=== PATIENT | male | born 1975 | race Caucasian/White ===

== ENCOUNTER 2017-01-20 09:29 | Emergency (ER) | payer BC ==
[~2017-01-20] VITALS: Ht 172.7 cm; Wt 81.0 kg
[2017-01-20] MEDS ORDERED: SOD CHLORIDE 0.9% 1,000 ML IV STA (09:35)
[2017-01-20] MEDS ORDERED: ONDANSETRON 4 MG INJ IV STA (09:35)
[2017-01-20] MEDS ORDERED: morphine 4 MG/ML VIAL IV STA (09:35)
[2017-01-20 09:42] VITALS: Ht 172.7 cm; Wt 81.0 kg
[2017-01-20 10:12] LABS: ADD SCAN DIFF NO
[2017-01-20 10:29] LABS: ALBUMIN 4.7 g/dl (3.3-4.9); ALBUMIN/GLOBULIN RATIO 1.56; BILIRUBIN,INDIRECT 0.7 mg/dl (0-1.1); BILIRUBIN,TOTAL 0.7 mg/dl (0.2-1.3); CALCIUM 9.4 mg/dl (8.4-10.2); CREATININE 0.74 mg/dl (0.61-1.24); POTASSIUM 4.2 mmol/L (3.5-5.1); TOTAL PROTEIN 7.7 g/dl (6.1-8.1)
--- NOTE | 2017-01-20 10:34 | RADRPT ---
PROCEDURE: Abdominal Ultrasound (right upper quadrant). CLINICAL INDICATION: Abdominal pain TECHNIQUE: Multiple real-time longitudinal and transverse images of the right upper quadrant of th e abdomen were acquired utilizing a curved array transducer. Images were reviewed on a high-resoluti on PACS workstation. COMPARISON: None FINDINGS: The liver is normal in size and echogenicity. No focal masses are identified. There is no evidenc e of intra or extrahepatic ductal dilatation. The common bile duct measures 3.6 mm in diameter. No gallstones or gallbladder wall thickening is seen. The visualized portions of the pancreas are unremarkable with obscuration of the tail of the pancrea s. No free fluid is identified. There is no evidence of right hydronephrosis or renal calcification. The right kidney measures 10.6 cm in length. The visualized portions of the aorta and inferior vena cava are within normal limits. IMPRESSION: 1. Unremarkable right upper quadrant ultrasound. RPTAT: KK .Zafar Hills MD, MD Date Time Electronically viewed and signed by .Zafar Hills MD, MD on 01/20/2017 10:33 .B/
[2017-01-20 10:44] LABS: ABNORMAL IP MESSAGE 1; BASOPHILS % 0.2 % (0.0-2.0); EOSINOPHILS # 0.1 10^3/ul (0.0-0.5); EOSINOPHILS % 0.7 % (0.0-7.0); HEMATOCRIT 43.7 % (42.0-52.0); HEMOGLOBIN 14.4 g/dl (14.0-18.0); LYMPHOCYTES # 0.3 10^3/ul (0.8-2.9); MEAN CORPUSCULAR HEMOGLOBIN 31.3 pg (29.0-33.0); MEAN PLATELET VOLUME 9.5 fl (7.4-10.4); MONOCYTE # 0.4 10^3/ul (0.3-0.9); MONOCYTES % 3.6 % (0.0-11.0); NEUTROPHIL # 10.2 10^3/ul (1.6-7.5); NEUTROPHILS % 92.3 % (39.0-77.0); PLATELET COUNT 256 10^3/UL (140-415); RED CELL DISTRIBUTION WIDTH 13.2 % (11.5-14.5)
[2017-01-20 11:31] LABS: ADD UMIC YES; URINE BILIRUBIN (Dip) NEGATIVE (NEGATIVE); URINE BLOOD (Dip) NEGATIVE (NEGATIVE); URINE COLOR YELLOW (YELLOW); URINE GLUCOSE (Dip) NEGATIVE (NEGATIVE); URINE KETONES (Dip) NEGATIVE (NEGATIVE); URINE LEUKOCYTE ESTERASE (Dip) NEGATIVE (NEGATIVE); URINE NITRITE (Dip) NEGATIVE (NEGATIVE); URINE TOTAL PROTEIN (Dip) TRACE (NEGATIVE); URINE UROBILINOGEN (Dip) 0.2 E.U./dL (0.1-1.0)
[2017-01-20] MEDS ORDERED: HYDR-902 PO (11:50)
[2017-01-20] MEDS ORDERED: ONDA4TAB14 PO (11:50)
[2017-01-20 11:57] VITALS: BP 129/76; PULSE 89; RESP 20; TEMP 98.5
--- NOTE | 2017-01-20 13:48 | ERD ---
ER Documentation Chief Complaint Date/Time DATE: 01/20/17 TIME: 13:47 Chief Complaint mid abdominal pain with nausea vomiting since yesterday HPI Patient is a 41-year-old male with no medical problems who presents with abdominal pain and vomiting. The symptoms started at 10 PM last night. He said that every hour the pain comes and then goes away. He has had no fevers. He has chills. He has had no treatment as of yet. Dr. 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 ROS All systems reviewed and are negative except as per history of present illness. Medications Home Meds Active Scripts Ondansetron (Ondansetron Odt) 4 Mg Tab.rapdis, 4 MG PO Q6H Y for NAUSEA AND/OR VOMITING, #30 TAB Prov:CATHERINE ARITA MD 01/20/17 Hydrocodone/Acetaminophen ([place] 10-325 Tablet) 1 Each Tablet, 1 TAB PO Q6H Y for PAIN, #7 TAB Prov:CATHERINE ARITA MD 01/20/17 Allergies Allergies: Coded Allergies: No Known Allergy (Unverified , 01/20/17) PMhx/Soc Medical and Surgical Hx: pt denies Medical Hx, pt denies Surgical Hx Hx Alcohol Use: Yes Hx Substance Use: No Hx Tobacco Use: No Smoking Status: Never smoker FmHx Family History: No diabetes Physical Exam Vitals Vital Signs Date Time Temp Pulse Resp B/P Pulse Ox O2 Delivery O2 Flow Rate FiO2 01/20/17 11:57 98.5 89 20 129/76 97 Room Air 01/20/17 10:03 99.5 108 20 133/87 96 Room Air 01/20/17 09:42 99.5 108 20 133/87 96 Physical Exam Const: Mild distress Head: Atraumatic Eyes: Normal Conjunctiva ENT: Normal External Ears, Nose and Mouth. Neck: Full range of motion..~ No meningismus. Resp: Clear to auscultation bilaterally Cardio: Regular rate and rhythm, no murmurs Abd: Soft, non tender, non distended. Normal bowel sounds Skin: No petechiae or rashes Back: No midline or flank tenderness Ext: No cyanosis, or edema Neur: Awake and alert Psych: Normal Mood and Affect Result Diagram: 01/20/17 0947 01/20/1747 Results 24 hrs Laboratory Tests Test 01/20/17 09:47 01/20/17 11:01 White Blood Count 11.010^3/ul Red Blood Count 4.6010^6/ul Hemoglobin 14.4g/dl Hematocrit 43.7% Mean Corpuscular Volume 95.0fl Mean Corpuscular Hemoglobin 31.3pg Mean Corpuscular Hemoglobin Concent 33.0g/dl Red Cell Distribution Width 13.2% Platelet Count 73521^3/UL Mean Platelet Volume 9.5fl Neutrophils % 92.3% Lymphocytes % 3.0% Monocytes % 3.6% Eosinophils % 0.7% Basophils % 0.2% Nucleated Red Blood Cells % 0.0/100WBC Neutrophils # 10.210^3/ul Lymphocytes # 0.310^3/ul Monocytes # 0.410^3/ul Eosinophils # 0.110^3/ul Basophils # 0.010^3/ul Nucleated Red Blood Cells # 0.010^3/ul Sodium Level 139mmol/L Potassium Level 4.2mmol/L Chloride Level 100mmol/L Carbon Dioxide Level 29mmol/L Anion Gap 14 Blood Urea Nitrogen 14mg/dl Creatinine 0.74mg/dl Glucose Level 127mg/dl Calcium Level 9.4mg/dl Total Bilirubin 0.7mg/dl Direct Bilirubin 0.00mg/dl Indirect Bilirubin 0.7mg/dl Aspartate Amino Transf (AST/SGOT) 27IU/L Alanine Aminotransferase (ALT/SGPT) 33IU/L Alkaline Phosphatase 87IU/L Total Protein 7.7g/dl Albumin 4.7g/dl Globulin 3.00g/dl Albumin/Globulin Ratio 1.56 Lipase 55U/L Urine Color YELLOW Urine Clarity CLEAR Urine pH 8.0 Urine Specific Avery 1.010 Urine Ketones NEGATIVE Urine Nitrite NEGATIVE Urine Bilirubin NEGATIVE Urine Urobilinogen 0.2 E.U./dL Urine Leukocyte Esterase NEGATIVE Urine Microscopic RBC 2-5/HPF Urine Microscopic WBC 0-2/HPF Urine Hemoglobin NEGATIVE Urine Glucose NEGATIVE% Urine Total Protein TRACE Current Medications Medications (Trade) Dose Ordered Sig/Francesco Route PRN Reason Start Time Stop Time Status Last Admin Dose Admin Sodium Chloride (NS) 1,000 ml @ 1,000 mls/hr Q1H STAT IV 01/20/17 09:35 4/25/17 10:34 DC 01/20/17 09:54 Morphine Sulfate (morphine) 4 mg ONCE STAT IV 01/20/17 09:35 01/20/17 09:36 DC 01/20/17 09:53 Ondansetron HCl (Zofran Inj) 4 mg ONCE STAT IV 01/20/17 09:35 01/20/17 09:36 DC 01/20/17 09:52 Procedures/MDM Ultrasound was negative per radiology. Patient is a 41-year-old male with no medical problems who presents with abdominal pain and vomiting. He had a full workup including laboratory studies and ultrasound of the right upper quadrant. Ultrasound was negative for gallstones or cholecystitis. Laboratory studies show mild leukocytosis but are otherwise normal. LFTs and lipase are normal. At this point I doubt cholecystitis, pancreatitis, appendicitis, or bowel obstruction. I believe the risks of doing a CT scan of the abdomen and pelvis outweigh the benefits. The patient will be discharged home but will need to follow-up with Dr. Angela Johnson within 24 hours for reevaluation. Departure Diagnosis: Primary Impression: Vomiting Vomiting type: unspecified Vomiting Intractability: non-intractable Nausea presence: with nausea Qualified Code: R11.2 - Non-intractable vomiting with nausea, unspecified vomiting type Additional Impression: Abdominal pain Abdominal location: epigastric Qualified Code: R10.13 - Epigastric pain Condition: Fair Patient Instructions: Abdominal Pain, Vomiting (6Y-Adult) Referrals: ANGELA JOHNSON Additional Instructions: FOLLOW UP WITH YOUR PRIMARY CARE PHYSICIAN TOMORROW.Return to this facility if you are not improving as expected. CATHERINE ARITA MD Jan 20, 2017 13:48
== END 2017-01-20 12:10 | disposition home or self-care (01) ==
LOC: E/R 09:29
DX: R11.2 Nausea with vomiting, unspecified (principal); R10.13 Epigastric pain
CPT/HCPCS: 76705; 80053; 81001; 83690; 85025; J2270; J2405; J7030; 36415; 81003; 96374; 96375